=== PATIENT | female | born 1935 | race Caucasian/White ===

== ENCOUNTER 2018-02-06 10:55 | Inpatient (IN) | payer OTHER ==
[~2018-02-06] VITALS: Ht 162.6 cm; Wt 118.9 kg
[~2018-02-06 10:55] MED LIST: ASPI81CH PO; CLIN300 PO; Prinivil10 MG PO; SACC250C PO
[2018-02-06 12:40] LABS: BASOPHILS PERCENT AUTO 1 % (0-2); EOSINOPHILS ABSOLUTE AUTO 0.13 K/mm3 (0.00-0.68); EOSINOPHILS PERCENT AUTO 1 % (0-6); Hematocrit 44.1 % (33.0-51.0); Hemoglobin 14.2 g/dL (11.5-16.0); IMMATURE GRAN ABSOLUTE AUTO 0.27 K/mm3 (0.00-0.10); IMMATURE GRAN PERCENT AUTO 2 % (0-1); LYMPHOCYTES ABSOLUTE AUTO 2.44 K/mm3 (0.84-5.20); LYMPHOCYTES PERCENT AUTO 16 % (21-46); MONOCYTES ABSOLUTE AUTO 1.41 K/mm3 (0.16-1.47); MONOCYTES PERCENT AUTO 9 % (4-13); Mean Corpuscular HGB 32.3 pg (26.0-34.0); Mean Corpuscular HGB Conc 32.2 g/dL (31.5-36.5); Mean Corpuscular Volume 101 fL (80-100); Mean Platelet Volume 10.2 fL (9.1-12.4); NEUTROPHILS ABSOLUTE AUTO 11.35 K/mm3 (1.96-9.15); NEUTROPHILS PERCENT AUTO 72 % (41-73); Platelet Count 457 K/mm3 (150-400); RDW Coefficient Variation 14.9 % (11.7-14.2); RDW Standard Deviation 55.4 fL (35.1-46.3); Red Blood Cell Count 4.39 M/mm3 (3.80-5.20)
[2018-02-06 13:02] LABS: Alanine Aminotransfer (ALT/SGP 61 U/L (12-78); Albumin, Blood 2.3 g/dL (3.4-5.0); Albumin/Globulin Ratio 0.5 (0.8-1.8); Alk Phos 378 U/L (50-136); Anion Gap 9 mmol/L (6-16); Aspartate Aminotrans (AST/SGOT 69 U/L (12-37); Blood Urea Nitrogen 16 mg/dL (8-24); CO2, Blood 23 mmol/L (21-32); Calcium, Blood 8.3 mg/dL (8.5-10.1); Chloride, Blood 108 mmol/L (98-108); Creatinine, Blood 0.89 mg/dL (0.40-1.00); Globulin, Blood 4.4 g/dL (2.2-4.0); Glomerular Filtration Rate >60 (60-); Glucose, Blood 138 mg/dL (70-99); Potassium, Blood 4.2 mmol/L (3.5-5.5); Sodium, Blood 140 mmol/L (136-145); Total Protein, Blood 6.7 g/dL (6.4-8.2); Troponin I <0.015 ng/mL (0.000-0.040)
--- NOTE | 2018-02-06 15:47 | NUR ---
Echocardiogram completed.
--- NOTE | 2018-02-06 16:31 | NUR ---
NURSING PCU DAYSHIFT SUMMARY: Assumed care of pt at approx 1555. Arrived from ER via gurney accompanied by RN. Able to xfer to unit bed w/SBA. A/O, very pleasant, cooperative w/care. C/O 3/10 pain in L breast r/t recent sx, large bruising and incision noted. Tele in place, afib w/HR 105-120's, no c/o CP/pressure, SBP 70's w/MAP 60, trace BLE edema. L/S w/expiratory wheezes t/o, dyspnea w/minimal exertion, O2 sat mid 90's on RA, no noted cough. Abd SNT, BT+, voiding w/o difficulty per pt. PIV x1, diltiazem gtt dc'd upon arrival to unit per d/o, NS initiated at 100cc/hr. Spouse currently at bedside. Pt and s/o deny any current needs or questions regarding plan of care. Call light remains in reach and pt demonstrated appropriate use. No s/s of acute distress at this time. Cont to monitor until rpt is given to NOC RN.
[2018-02-06 20:18] LABS: CPK Creatine Kinase 20 U/L (26-193); Troponin I <0.015 ng/mL (0.000-0.040)
[2018-02-06 20:24] LABS: Creatine Kinase MB < 1.0 ng/mL (0.0-3.6)
--- NOTE | 2018-02-07 03:19 | NUR ---
END OF SHIFT SUMMARY: PATIENT DIFFICULTY SLEEPING THIS SHIFT, NO OTHER COMPLAINTS. PATIENTS TELEMETRY D/C'D APPROX 1400 ON 02/06/18 BY . MAYELIN SORIA NOTIFIED OF PATIENTS STATUS, PERAMETERS GIVEN. NO OTHER ISSUES NOTED, CALL LIGHT WITHIN REACH, BED LOW AND LOCKED.
[2018-02-07 04:11] LABS: Hemoglobin 12.5 g/dL (11.5-16.0); Mean Corpuscular HGB 31.1 pg (26.0-34.0); Mean Corpuscular HGB Conc 31.3 g/dL (31.5-36.5); Mean Corpuscular Volume 100 fL (80-100); Mean Platelet Volume 10.3 fL (9.1-12.4); Platelet Count 371 K/mm3 (150-400); RDW Coefficient Variation 15.2 % (11.7-14.2); RDW Standard Deviation 54.3 fL (35.1-46.3); Red Blood Cell Count 4.02 M/mm3 (3.80-5.20); White Blood Cell Count 13.94 K/mm3 (4.00-11.30)
[2018-02-07 04:31] LABS: Anion Gap 9 mmol/L (6-16); Blood Urea Nitrogen 13 mg/dL (8-24); Bun/Creatinine Ratio 16.2 (12.0-20.0); CO2, Blood 25 mmol/L (21-32); Calcium, Blood 7.8 mg/dL (8.5-10.1); Chloride, Blood 107 mmol/L (98-108); Glomerular Filtration Rate >60 (60-); Glucose, Blood 158 mg/dL (70-99); Magnesium, Blood 2.2 mg/dL (1.6-2.4); Phosphorus, Blood 3.3 mg/dL (2.5-4.9); Sodium, Blood 141 mmol/L (136-145)
[2018-02-07 04:38] LABS: CPK Creatine Kinase 17 U/L (26-193); Troponin I <0.015 ng/mL (0.000-0.040)
[2018-02-07 04:40] LABS: Creatine Kinase MB < 1.0 ng/mL (0.0-3.6); Creatine Kinase MB Index 5.9 (0.0-4.0)
--- NOTE | 2018-02-07 08:00 | NUR ---
CALLED DR. URIBE FOR TELEMETRY ORDER. PLACED ON TELEMETRY, AFIB WITH RVR, HR 156 - 163.
--- NOTE | 2018-02-07 08:20 | NUR ---
CALLED DR. URIBE TO REPORT AFIB WITH RVR [id number], ORDERS TO GIVE LOPRESSOR 5MG IV NOW AND TO GIVE HER MORNING ROUTINE DOSE OF LOPRESSOR 25MG PO. DONE.
--- NOTE | 2018-02-07 08:41 | NUR ---
REMAINS IN AFIB, VSS, HR 98-121, AFTER GIVING IV LOPRESSOR AND ROUTINE MORNING LOPRESSOR AND ASPIRIN.
--- NOTE | 2018-02-07 09:00 | NUR ---
REPORT RECIEVED FROM ROSSY RODRIGUEZ, PT IS RESTING COMFORTABLY IN BED. PT DENIES NEEDS AT THIS TIME, CALL LIGHT IN REACH.
--- NOTE | 2018-02-07 10:36 | NUR ---
Pt and spouse Librado was present when introductions were exchanged. Pt reviews her current health status and admittance. The couple have been together for 63 years. Celebratory remarks were offered and pt reminisced on their meeting. The couple have 3 children - one who lives in the area at this time. Pt admits she gets stressed easy. General guidance given concerning handling stress. Pt encouraged to rely on her spouse for help. I offered to keep the couple in my prayers. They verbalized gratitude for the interventions.
--- NOTE | 2018-02-07 18:48 | NUR ---
PCU DAYSHIFT SUMMARY PATIENT ALERT AND ORIENTED X4. RESP E/U AT REST - PATIENT DOES HAVE SHALLOW RESPIRATION; SOB WITH EXCERTION. PATIENT HAS REMAINED IN AFIB T/O SHIFT. IV LOPRESSOR GIVEN PER EMAR AND MD URIBE NOTIFIED AND A 1 TIME DOES OF ORAL LOPRESSOR GIVEN IN ADDITION TO CURRENT LOPRESSOR BID ORDERS. PATIENT REMAINS ON ROOM AIR. VSS; NO ACUTE DISTRESS NOTED. PATIENT DENIED ANY COMPLAINS AND/OR PAIN T/O SHIFT. PATIENT VERY ANXIOUS TO D/C HOME - MD URIBE NOTIFIED AND VERBALIZED THAT PATIENT WILL D/C POSSIBLY TOMORROW IF AFIB IS CONTROLED. PATIENT INDEPENDENT IN ROOM WITH CALL LIGHT W/I REACH. WILL CONTINUE TO MONITOR AND GIVE REPORT TO NOC SHIFT RN.
--- NOTE | 2018-02-07 19:35 | NUR ---
CARE ASSUMPTION PT A&O X4, CALM AND COOPERATIVE. PT STATES "I'M DISAPPOINTED I DIDN'T GET TO GO HOME TODAY." DISCUSSED REASONING FOR PT BEING IN HOSPITAL, PT UNDERSTANDING. MONITOR SHOWS AFIB, HR 100-120. LUNG SOUNDS CLEAR T/O, DIM IN BASES. SPO2 > 92% ON RA. PT STATES "OCCASSIONAL BURNING" IN L BREAST, BUT STATES "IT'S NOT BAD" AND IS DENYING PAIN AT THIS TIME. L BREAST PURPLE IN COLOR. INCISION ON L BREAST OPEN TO AIR AND DRY. PT SBA TO BSC W/ FWW, TOLERATING WELL. WILL CONTINUE TO MONITOR AND PROVIDE CARE.
--- NOTE | 2018-02-08 07:54 | NUR ---
[id number] CARE ASSUMED, PT ASSESSED, TACHYPNEA, TACHYCARDIA WHEN UP TO BSC, HR +/- 100 BPM AT REST. PT SLEPT INTERMIT, DENIES DYSPNEA BUT ONLY LUIS HOB TO 20 DEGREES. LUNGS CLEAR TO AUSCLUTATION. NO C/Os OF PAIN
--- NOTE | 2018-02-08 08:10 | NUR ---
INITIAL ASSESSMENT: Pt sitting up in bed. HR irregular. Tele shows afib at a rate of 120's. Medicated with oral metoprolol per orders. Pt hopes to be discharged to home today. LS clear. BT positive. Pulses palp. Denies pain or SOB at this time. Call light in reach. Will monitor.
[2018-02-08] MEDS ORDERED: METO50 PO ×2 (11:07→11:16)
--- NOTE | 2018-02-08 11:25 | NUR ---
Discharge: Pt given verbal and written discharge instrucitons. Verbalzied understanding, denies questions. RX called to [facility] per pt request. Stable at time of discharge. IV discontinued, cath intact. Left via w/c with [employer].
== END 2018-02-08 11:40 | disposition home or self-care (01) | DRG 309 ==
LOC: ER 10:55 → PCU 14:37
PROVIDERS: Physician Assistant; ADMIT Internal Medicine
DX: I48.91 Unspecified atrial fibrillation (principal); Z68.42 Body mass index [BMI] 45.0-49.9, adult; I10 Essential (primary) hypertension; K21.9 Gastro-esophageal reflux disease without esophagitis; C50.912 Malignant neoplasm of unspecified site of left female breast; E66.9 Obesity, unspecified; Z88.5 Allergy status to narcotic agent; Z88.8 Allergy status to other drugs, medicaments and biological substances; Z79.82 Long term (current) use of aspirin; Z79.899 Other long term (current) drug therapy; Z87.891 Personal history of nicotine dependence
CPT/HCPCS: 36415; 71046; 80048; 80053; 82550; 82553; 83735; 83880; 84100; 84443; 84484; 85025; 85027; 93005; 93010; 93306; 96365; 96376; 99285-25; J1650; J7030